=== PATIENT | male | born 1960 | race African-American/Black ===

== ENCOUNTER 2017-07-10 08:55 | Outpatient (CLI) | payer OTHER ==
[2017-07-10] MEDS ORDERED: Iopamidol 370 76% 100 ML VIAL ONE (13:08)
== END 2017-07-10 08:56 | disposition home or self-care (01) ==
LOC: BICCT 08:55
PROVIDERS: ATTEND Urology
DX: N28.1 Cyst of kidney, acquired (principal); N13.30 Unspecified hydronephrosis
CPT/HCPCS: 74178

== ENCOUNTER 2017-07-29 11:59 | Outpatient (CLI) | payer OTHER ==
--- NOTE | 2017-07-29 15:45 | NM ---
DIURETIC RADIONUCLIDE RENOGRAM: HISTORY: Bilateral hydronephrosis, bladder outlet obstruction. RADIOPHARMACEUTICAL: 8.8 mCi Technetium 99m-MAG-3 injected intravenously. DIURETIC: 40 mg IV Lasix is administered 15 minutes prior to the radiopharmaceutical. FINDINGS: The exam was performed with a Hope catheter in the urinary bladder. There is decreased blood flow to the right kidney compared to the left with slower uptake as well. T he differential function measures 60% on the left and 40% on the right. Tracer excretion is seen int o the ureters bilaterally and the urinary bladder. The renogram curves are downsloping. Photopenic areas in the kidneys are consistent with cysts noted on the CT scan of 07/10/17. IMPRESSION: 1. No evidence of high-grade obstruction. 2. Differential function measures 60% on the left and 40% on the right. Discussed over the telephone with Dr. Neida Patton at 2:17 p.m. CODE CR POS: OFF
[2017-07-29] MEDS ORDERED: Furosemide 40 MG/4 ML VIAL ONE (15:59)
== END 2017-07-29 12:00 | disposition home or self-care (01) ==
LOC: NM 11:59
PROVIDERS: ATTEND Urology
DX: N13.30 Unspecified hydronephrosis (principal)
CPT/HCPCS: 78708; 81001; 87086; A4641; A9562; J1940

== ENCOUNTER 2017-08-05 16:12 | Outpatient (CLI) | payer OTHER ==
[2017-08-05 17:12] LABS: Hemoglobin 12.1 g/dL (14.0-18.0); Mean Corpuscular HGB CONC 32.8 g/dL (32.0-36.0); Mean Corpuscular Hemoglobin 27.6 pg (27.0-31.0); Mean Corpuscular Volume 84.2 fl (80.0-94.0); Mean Platelet Volume 8.9 fL (7.4-10.4); Platelet Count 165 thou/uL (130-400); RBC Distribution Width 12.8 % (11.5-14.5); Red Blood Cell (RBC) Count 4.39 mill/uL (4.70-6.10); White Blood Cell (WBC) Count 6.8 thou/uL (4.8-10.8)
[2017-08-05 17:23] LABS: Hemoglobin A1c 5.8 % (4.0-6.0)
[2017-08-05 17:40] LABS: Anion Gap 12 mmol/L (10-20); BUN (Urea Nitrogen) 16 mg/dL (8.4-25.7); Calc. Creatinine Clearance 0 mL/min (70-130); Calcium 9.6 mg/dL (7.8-10.44); Carbon Dioxide 26 mmol/L (22-29); Chloride 105 mmol/L (98-107); Estimated GFR-MDRD 63; Glucose 88 mg/dL (70-105); Potassium 4.1 mmol/L (3.5-5.1); Sodium 139 mmol/L (136-145)
== END 2017-08-05 16:13 | disposition home or self-care (01) ==
LOC: LABBT 16:12
PROVIDERS: ATTEND Urology
DX: Z01.818 Encounter for other preprocedural examination (principal); N40.0 Benign prostatic hyperplasia without lower urinary tract symptoms; R33.9 Retention of urine, unspecified
CPT/HCPCS: 80048; 83036; 85027; 93005; 93010

== ENCOUNTER 2017-08-13 06:49 | Day surgery (SDC) | payer OTHER ==
[2017-08-05 16:29] VITALS: BMI 29.8
[2017-08-13] MEDS ORDERED: Dexamethasone 4 mg/ml Vial ONE (07:05)
[2017-08-13] MEDS ORDERED: cefTRIAXone\\ROCEPHIN 2 GM in Sodium Chloride 0.9% 100 ML IVPB ONE (07:15)
[2017-08-13] MEDS ORDERED: B & O ONE ×2 (07:17→12:35)
[2017-08-13] MEDS ORDERED: Furosemide 20 MG/2 ML VIAL ONE (07:17)
[2017-08-13] MEDS ORDERED: Fentanyl 100 MCG/2 ML VIAL ONE ×3 (08:45→11:08)
--- NOTE | 2017-08-13 12:16 | OP ---
DATE OF PROCEDURE: 08/13/2017 PREOPERATIVE DIAGNOSES: Benign prostatic hypertrophy, prior retention, incomplete emptying, and renal insufficiency, resolved with catheterization. POSTOPERATIVE DIAGNOSES: Benign prostatic hypertrophy, prior retention, incomplete emptying, and renal insufficiency, resolved with catheterization. PROCEDURE: GreenLight laser vaporization of the prostate with enucleation of the middle lobe. SURGEON: Nina Fonseca M.D. ANESTHESIA: General. INDICATIONS: General with laryngeal mask airway. FINDINGS: Large middle lobe enucleated, lateral lobes taken down, total of 248, 686 joules used. SPECIMENS: Prostate from the middle lobe. ESTIMATED BLOOD LOSS: Minimal blood loss. DRAINS: Drain remaining was a 20-Thai 2-way. The patient is a 56-year-old gentleman who was noted to have at least 800 in his bladder on his first visit with me, although he did not know that he had that amount left behind. In the workup he was noted to have hematuria and a CT scan showed bilateral hydronephrosis with a not distended bladder because I had already drained the bladder and remove the catheter; however, I think this was all related to bladder outlet obstruction as the renal scan did not note any ureteral obstruction and his creatinine normalized with the indwelling catheter , but was ultimately removed and he was voiding prior to the surgery with residuals that were no better than about 200. TECHNIQUE: The patient was brought into the room by Anesthesia, laid on the table in supine position. After receiving general anesthetic, he was placed in lithotomy position and his perineum was prepped and draped in sterile fashion. Using a 22.5F cystoscope, the urethra was traversed and the bladder inspected. The orifices were identified and preserved throughout the case. Middle lobe was very large and obstructing and taken down in enucleation fashion using a power level of 80. Once it was out of the intravesical component and in the mid gland a power level of 180 was used, contour of the bladder neck was performed with 80 towards the end of the case to take down the trigone to the level of the bladder floor as well as the lateral portions to the lateral fornices of the bladder base. Initially when the scope was removed, no significant stream was noted; however, the bladder was not adequately filled so slightly more resection occurs lateral lobes, but ultimately with a more full bladder the scope was removed and a decent stream was noted. Scope was put back in and bladder decompressed. Hemostasis achieved with power of 80 in the prostatic bed. The scope was removed a final time. A 20 Thai catheter was placed to gravity. The patient tolerated the procedure well and was then awakened and transferred to PACU in stable condition. TJ
[2017-08-13] MEDS ORDERED: Acetaminophen/Codeine 30-300mg Tablet ONE (12:20)
[2017-08-13] MEDS ORDERED: B & O 30 MG SUPP PR PRN (12:24)
[2017-08-13] MEDS ORDERED: Ondansetron HCl/PF 4 MG/2 ML Vial SLOW IVP PRN (12:27)
[2017-08-13] MEDS ORDERED: Metoclopramide HCl 10 MG/2 ML VIAL IVP PRN (12:28)
[2017-08-13] MEDS ORDERED: Acetaminophen/Codeine 30-300mg Tablet PO PRN (12:30)
[2017-08-13] MEDS ORDERED: B & O PR PRN (12:39)
== END 2017-08-13 13:06 | disposition home or self-care (01) ==
LOC: SDC 06:49
PROVIDERS: ATTEND Urology
PROC: 0V507ZZ Destruction of Prostate, Via Natural or Artificial Opening (ICD-10-PCS; principal; 2017-08-13)
DX: N41.1 Chronic prostatitis (principal); R33.8 Other retention of urine; R31.0 Gross hematuria; R39.14 Feeling of incomplete bladder emptying; N39.0 Urinary tract infection, site not specified; N13.30 Unspecified hydronephrosis; Z87.891 Personal history of nicotine dependence; Z79.82 Long term (current) use of aspirin
CPT/HCPCS: 88305; 96374; J0696; J1100; J1940; J3010; J7050

== ENCOUNTER 2021-11-20 05:26 | Emergency (ER) | payer OTHER ==
[2021-11-20] MEDS ORDERED: diphenhydrAMINE 50 MG/ML VIAL ONE (05:59)
[2021-11-20] MEDS ORDERED: Metoclopramide HCl 10 MG/2 ML VIAL ONE (05:59)
[2021-11-20] MEDS ORDERED: Ketorolac Tromethamine 30 MG/ML VIAL ONE (06:00)
== END 2021-11-20 07:44 | disposition home or self-care (01) ==
LOC: ERS 05:26
DX: M62.838 Other muscle spasm (principal); I10 Essential (primary) hypertension; F17.220 Nicotine dependence, chewing tobacco, uncomplicated
CPT/HCPCS: 70450; 96374; 96375; J1200; J1885; J2765

== ENCOUNTER 2024-12-08 14:40 | Outpatient (CLI) | payer BC ==
[~2024-12-08 14:40] MED LIST: Iopamidol 370 76% 100 ML VIAL ONE
[2024-12-08 15:04] LABS: Estimated GFR - POC 48.0
== END 2024-12-08 14:41 | disposition home or self-care (01) ==
LOC: CT 14:40
PROVIDERS: ATTEND Internal Medicine Nephrology
DX: N18.30 Chronic kidney disease, stage 3 unspecified (principal); Q61.3 Polycystic kidney, unspecified
CPT/HCPCS: 36415; 74170; 82565; Q9967